=== PATIENT | male | born 2000 | race Caucasian/White ===

== ENCOUNTER 2020-10-22 11:05 | Emergency (ER) | payer BC ==
[~2020-10-22] VITALS: Ht 180.3 cm; Wt 75.7 kg
[2020-10-22 11:19] VITALS: BP 113/68
[2020-10-22] MEDS ORDERED: PENI500T20 PO (12:40)
[2020-10-22] MEDS ORDERED: PRED20TA5 PO (12:40)
[2020-10-22] MEDS ORDERED: KETOROLAC 30 MG/ML VIAL IM ONE (12:40)
[2020-10-22] MEDS ORDERED: NAPR-54 PO (12:40)
[2020-10-22] MEDS ORDERED: PROM473S5 PO (12:40)
[2020-10-22 12:51] VITALS: BP 113/68
== END 2020-10-22 12:52 | disposition home or self-care (01) ==
LOC: MED 11:05
DX: J02.9 Acute pharyngitis, unspecified (principal); Z88.1 Allergy status to other antibiotic agents; Z79.899 Other long term (current) drug therapy
CPT/HCPCS: 96372; 99283; J1885